=== PATIENT | female | born 1955 | race Caucasian/White ===

== ENCOUNTER 2022-06-23 06:12 | Outpatient (CLI) | payer BC ==
[~2022-06-23] VITALS: Ht 134.6 cm; Wt 59.0 kg
[2022-06-23] MEDS ORDERED: METO50TA7 PO (09:11)
[2022-06-23] MEDS ORDERED: LISI40TA9 PO (09:11)
== END 2022-06-23 09:17 | disposition home or self-care (01) ==
LOC: PREOP 06:12
PROVIDERS: ATTEND Surgery
DX: Z01.818 Encounter for other preprocedural examination (principal)

== ENCOUNTER 2022-07-05 09:41 | Day surgery (SDC) | payer BC ==
[~2022-07-05] VITALS: Ht 135 cm; Wt 59.0 kg
[2022-07-05] VITALS (8 sets, daily range): BP systolic 86–119; BP diastolic 51–98
[~2022-07-05 09:41] MED LIST: LISI40TA9 PO; METO50TA7 PO
[2022-07-05] MEDS ORDERED: LACTATED RINGERS 1,000 ML IV STA (09:50)
--- NOTE | 2022-07-05 09:51 | Progress Note-Pre Operative ---
Pre-Operative Progress Note Date of Available H&P: Jun 17, 2022 Date H&P Reviewed: Jul 05, 2022 Time H&P Reviewed: 09:49 History & Physical: H&P Reviewed, Patient Examed, No changes noted Pre-Operative Diagnosis: JESSICA York DO Jul 05, 2022 09:51
[2022-07-05] MEDS ORDERED: LACTATED RINGERS 1,000 ML IV ONE (09:57)
[2022-07-05] MEDS ORDERED: PROPOFOL INJECTION 50 ML IV ONE (11:24)
[2022-07-05] MEDS ORDERED: MIDAZOLAM 2 MG/2 ML (VERSED) VIAL ONE (11:25)
--- NOTE | 2022-07-05 11:42 | Progress Note-Post Operative ---
Post-Operative Progess Note Surgeon (s)/[employer] (s) Surgeon JESSICA CORONADO DO [employer]: DAMIR Bonner Pre-Operative Diagnosis Screening Post-Operative Diagnosis Diverticula Int hemorrhoids Procedure & Operative Findings Date of Procedure 07/05/22 Procedure Performed/Findings Colonoscopy PROCEDURE NOTE: After informed consent was obtained, the patient was brought to the endoscopy suite, placed in bed in left lateral decubitus position. She was administered IV sedation by the STAFF TOXICOLOGIST who then monitored her vitals the entire time, heart rate, blood pressure and pulse ox and the scope was inserted, pushed all the way to about 150 cm and pushed into the cecum, took a picture of appendiceal orifice and noted the ileocecal valve. Then slowly withdrew the scope insufflating to look circumferentially at the lewis starting in the cecum, up the ascending colon to the hepatic flexure, then down the transverse colon, splenic flexure, into the descending colon down into the sigmoid and then into the rectal vault and retroflexed the scope. Took a picture of the internal hemorrhoids. I noted some diverticula and took pictures of them during the colonscopy. The patient tolerated the procedure. She was recovered in endoscopy suite. Recommended for repeat colonoscopy in 10 years. Anesthesia Type IV sedation by STAFF TOXICOLOGIST Estimated Blood Loss Estimated blood loss (mL): none Specimens/Packing Specimens Removed none JESSICA CORONADO DO Jul 05, 2022 11:42
--- NOTE | 2022-07-05 11:43 | Endoscopy Discharge Instruct ---
Endo Procedure/Findings Findings 1.: Diverticulosis 2.: Internal Hemorrhoids Discharge Instructions - Activity: You might feel a little sleepy until tomorrow. This is due to the medicine you received to relax you. Until tomorrow, you should: NOT drive a car, operate machinery or power tools. NOT drink any alcoholic beverages. NOT make any important decisions or sign importortant papers. Do not return to work until tomorrow, unless otherwise instructed. Resume previous activities tomorrow. Diet: Start by taking liquids. If you tolerate liquids, advance to solid food. 1.: Colonscopy in 10 years Notify Physician - If you experience excessive bleeding, unusual abdominal pain, fever, or chest pain, contact your doctor immediately. Follow-Up: Other Follow up in one week JESSICA CORONADO DO Jul 05, 2022 11:43
--- NOTE | 2022-07-05 12:31 | Anesthesia-General Post-Op ---
MAC Patient Condition Mental Status/LOC: Same as Preop Cardiovascular: Satisfactory Nausea/Vomiting: Absent Respiratory: Satisfactory Pain: Controlled Complications: Absent Post Op Complications Complications None Follow Up Care/Instructions Patient Instructions None needed. Anesthesiology Discharge Order Discharge Order Patient is doing well, no complaints, stable vital signs, no apparent adverse anesthesia problems. No complications reported per nursing. ANNA OBRIEN CRNA Jul 05, 2022 12:31
== END 2022-07-05 12:38 | disposition home or self-care (01) ==
LOC: ENDO 09:41
PROVIDERS: ATTEND Surgery
DX: Z12.11 Encounter for screening for malignant neoplasm of colon (principal); K57.30 Diverticulosis of large intestine without perforation or abscess without bleeding; K64.8 Other hemorrhoids